=== PATIENT | male | born 1980 | race Caucasian/White ===

== ENCOUNTER 2017-07-31 00:07 | Emergency (ER) | payer MEDICAID ==
[~2017-07-31] VITALS: Ht 177.8 cm; Wt 72.6 kg
--- NOTE | 2017-07-31 00:17 | NUR ---
DR. LOPEZ SPEAKING TO POISON CONTROL AT THIS TIME.
[2017-07-31 00:18] VITALS: BP 125/85
--- NOTE | 2017-07-31 00:22 | NUR ---
PO CHALLENGED PASSED. DR. LOPEZ AT BEDSIDE SPEAKING TO PT
--- NOTE | 2017-07-31 00:32 | NUR ---
Patient discharged to home in stable condition. Written and verbal after care instructions given. Patient verbalizes understanding of instruction.
== END 2017-07-31 00:34 | disposition home or self-care (01) ==
LOC: ER 00:10
DX: T54.91XA Toxic effect of unspecified corrosive substance, accidental (unintentional), initial encounter (principal); F32.9 Major depressive disorder, single episode, unspecified; F31.9 Bipolar disorder, unspecified; Y92.89 Other specified places as the place of occurrence of the external cause
CPT/HCPCS: 99283; A4606; Z7610

== ENCOUNTER 2017-08-09 00:12 | Emergency (ER) | payer MEDICAID ==
[~2017-08-09] VITALS: Ht 177.8 cm; Wt 97.5 kg
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
--- NOTE | 2017-08-09 00:35 | NUR ---
DR. MCKEON AT BEDSIDE FOR EVAL.
--- NOTE | 2017-08-09 03:45 | NUR ---
pt IV removed. Catheter intact and site benign. Pressure and 4x4 applied to site. No bleeding noted.
--- NOTE | 2017-08-09 04:28 | NUR ---
Patient is resting comfortably in bed with eyes closed. Easily aroused. VSS. pt able to verbalize needs.
--- NOTE | 2017-08-09 06:36 | NUR ---
Patient is resting comfortably in bed with eyes closed. Easily aroused. VSS. pt provided with urinal as requested.
--- NOTE | 2017-08-09 07:22 | NUR ---
PT OK TO DISCHARGE PER DR MCKEON. Patient discharged to home in stable condition. Written and verbal after care instructions given. Patient verbalizes understanding of instruction.Patient is awake and alert to self, day, and place. PT ambulatory with a steady gait
--- NOTE | 2017-08-09 07:34 | NUR ---
REPORT GIVEN TO WALLY MOON FOR KIKI.
[2017-08-09 07:52] VITALS: BP 128/74
== END 2017-08-09 07:53 | disposition home or self-care (01) ==
LOC: ER 00:13
DX: S09.90XA Unspecified injury of head, initial encounter (principal); F19.10 Other psychoactive substance abuse, uncomplicated; E86.0 Dehydration; F32.9 Major depressive disorder, single episode, unspecified; F31.9 Bipolar disorder, unspecified; W50.1XXA Accidental kick by another person, initial encounter; Y93.89 Activity, other specified; Y92.89 Other specified places as the place of occurrence of the external cause; Y99.8 Other external cause status
CPT/HCPCS: 70450-TC; 70486-TC; 72125-TC; A4606; J2060; J7030; Z7610